=== PATIENT | male | born 1985 | race Caucasian/White ===

== ENCOUNTER 2017-11-21 03:39 | Inpatient (IN) | payer SELFPAY ==
[~2017-11-21] VITALS: Ht 182.9 cm; Wt 106.6 kg
[2017-11-21] MEDS ORDERED: ONDANSETRON HCL 4MG/2ML VIAL IV STA (04:21)
[2017-11-21] MEDS ORDERED: SODIUM CHLORIDE 0.9% 1,000 ML IV ONE (04:21)
[2017-11-21] MEDS ORDERED: MORPHINE SULFATE 4 MG/ML CPJ (NOT FOR IM USE) IV STA (04:21)
[2017-11-21] MEDS ORDERED: FAMOTIDINE 20MG/2ML VIAL IV STA (04:21)
[2017-11-21 04:46] LABS: HEMATOCRIT. 49.1 % (42.0-52.0); HEMOGLOBIN. 17.1 g/dL (14.0-18.0); MEAN CORPUSCULAR HEMOGLOBIN 28.9 pg (28.0-32.0); MEAN CORPUSCULAR VOLUME 83.1 fL (80.0-94.0); MEAN PLATELET VOLUME 8.9 fl (7.4-10.4); PLATELET 350 x1000/uL (130-400); RED CELL DISTRIBUTION WIDTH 13.7 % (11.6-14.6)
[2017-11-21 04:49] LABS: CHLORIDE 102 mEq/L (98-107)
[2017-11-21] MEDS ORDERED: CEFTRIAXONE 1 G PREMIX 50 ML IV ONE (05:15)
[2017-11-21 05:28] LABS: PLATELET ESTIMATE NORMAL
[2017-11-21] MEDS ORDERED: SODIUM CHLORIDE 0.9% 1,000 ML IV SCH (05:32)
[2017-11-21 06:32] LABS: CLARITY URINE CLEAR (CLEAR); COLOR URINE YELLOW (YELLOW); KETONES URINE NEGATIVE (NEGATIVE); LEUKOCYTE ESTERASE URINE NEGATIVE (NEGATIVE); NITRITE URINE NEGATIVE (NEGATIVE); OCCULT BLOOD URINE NEGATIVE (NEGATIVE); PROTEIN URINE TRACE (NEGATIVE); SPECIFIC GRAVITY URINE 1.021 (1.005-1.030)
[2017-11-21] MEDS ORDERED: AMLODIPINE 10MG TABLET PO ONE (06:45)
[2017-11-21 08:00] VITALS: BP 163/93
[2017-11-21] MEDS ORDERED: MORPHINE SULFATE 4 MG/ML CPJ (NOT FOR IM USE) IV PRN ×2 (08:15→09:15)
[2017-11-21] MEDS ORDERED: ENOXAPARIN 40MG/0.4ML SYR SUBCUT SCH (09:00)
[2017-11-21] MEDS ORDERED: ACETAMINOPHEN 650MG/20.3ML UDC GT PRN (09:00)
[2017-11-21] MEDS ORDERED: IPRATROPIUM/ALBUTEROL 0.5-3(2.5)MG/3ML NEB INH PRN (09:00)
[2017-11-21] MEDS ORDERED: ONDANSETRON HCL 4MG/2ML VIAL IV PRN (09:00)
[2017-11-21] MEDS ORDERED: GUAIFENESIN 200MG/10ML SUGAR FREE UDC PO PRN (09:00)
[2017-11-21] MEDS ORDERED: ACETAMINOPHEN 325MG TABLET PO PRN (09:00)
[2017-11-21] MEDS ORDERED: DEXTROSE 50% WATER 50ML SYRINGE IV PRN (09:00)
[2017-11-21] MEDS ORDERED: DOCUSATE SODIUM 100MG CAPSULE PO PRN (09:00)
[2017-11-21] MEDS ORDERED: DIPHENHYDRAMINE 50MG/ML VIAL IV PRN (09:00)
[2017-11-21] MEDS ORDERED: NA PHOS,M-B/NA PHOS,DI-BA ENEMA 118ML PR PRN (09:00)
[2017-11-21] MEDS ORDERED: ACETAMINOPHEN 650MG SUPP PR PRN (09:00)
[2017-11-21] MEDS ORDERED: MAGNESIUM/ALUMINUM HYDROXIDE/SIMETHICONE 30ML UDC PO PRN (09:00)
[2017-11-21] MEDS ORDERED: MORPHINE SULFATE 2 MG/ML CPJ (NOT FOR IM USE) IV PRN (09:15)
[2017-11-21] MEDS: ENOXAPARIN 30MG/0.3ML SYR SUBCUT SCH ×2 (09:20→21:28)
[2017-11-21] MEDS: BENAZEPRIL 10MG TABLET PO SCH ×2 (09:20→17:22)
[2017-11-21 09:37] VITALS: BP 164/89
[2017-11-21] MEDS: LEVOFLOXACIN 500MG PREMIX 100 ML IV SCH (10:16)
[2017-11-21] MEDS: SODIUM CHLORIDE 0.45% 1,000 ML IV SCH ×2 (10:16→21:29)
[2017-11-21 10:43] LABS: HEMATOCRIT. 49.6 % (42.0-52.0); HEMOGLOBIN. 17.7 g/dL (14.0-18.0); MEAN PLATELET VOLUME 9.3 fl (7.4-10.4); PLATELET 347 x1000/uL (130-400); RED CELL DISTRIBUTION WIDTH 13.7 % (11.6-14.6)
[2017-11-21 11:00] LABS: CHLORIDE 97 mEq/L (98-107)
[2017-11-21 12:00] VITALS: BP 178/106
[2017-11-21] MEDS: BLOOD SUGAR DIAGNOSTIC STRIP TEST SCH ×3 (12:20→21:28)
[2017-11-21 12:24] LABS: CLARITY URINE CLEAR (CLEAR); COLOR URINE YELLOW (YELLOW); KETONES URINE NEGATIVE (NEGATIVE); LEUKOCYTE ESTERASE URINE NEGATIVE (NEGATIVE); NITRITE URINE NEGATIVE (NEGATIVE); OCCULT BLOOD URINE NEGATIVE (NEGATIVE); PROTEIN URINE NEGATIVE (NEGATIVE); SPECIFIC GRAVITY URINE 1.009 (1.005-1.030)
[2017-11-21] MEDS: INSULIN LISPRO 100 UNITS/ML SUBCUT SCH ×3 (12:43→21:00)
[2017-11-21] MEDS: HYDROCODONE/ACETAMINOPHEN 10/325MG TABLET PO PRN ×3 (12:50→23:31)
[2017-11-21 13:17] LABS: *AMPHETAMINES SCREEN URINE PRESUMTIVE POSITIVE (NEGATIVE); *BARBITURATES SCREEN URINE NEGATIVE (NEGATIVE); *BENZODIAZEPINES SCREEN URINE NEGATIVE (NEGATIVE); *COCAINE SCREEN URINE NEGATIVE (NEGATIVE); CANNABINOID URINE SCREEN NEGATIVE (NEGATIVE); METHADONE URINE SCREEN NEGATIVE (NEGATIVE); OPIATES URINE SCREEN PRESUMTIVE POSITIVE (NEGATIVE); PHENCYCLIDINE URINE SCREEN NEGATIVE (NEGATIVE)
[2017-11-21 16:00] VITALS: BP 164/109
[2017-11-21] MEDS: SODIUM CHLORIDE 0.9% INJ 3ML FLUSH IVF SCH ×2 (17:37→21:28)
[2017-11-21] MEDS: METRONIDAZOLE 500 MG PREMIX 100 ML IV SCH ×2 (17:37→21:28)
[2017-11-21 20:00] VITALS: BP 159/103
[2017-11-21] MEDS: CLONIDINE 0.1MG TABLET PO PRN (21:30)
[2017-11-22] VITALS: BP 155/106
[2017-11-22] MEDS: HYDROCODONE/ACETAMINOPHEN 5/325MG TABLET PO PRN ×2 (03:36→18:12)
[2017-11-22] MEDS: CLONIDINE 0.1MG TABLET PO PRN (03:49)
[2017-11-22 04:00] VITALS: BP 145/97
[2017-11-22] MEDS: SODIUM CHLORIDE 0.9% INJ 3ML FLUSH IVF SCH ×2 (06:32→22:46)
[2017-11-22] MEDS: BLOOD SUGAR DIAGNOSTIC STRIP TEST SCH ×4 (06:33→21:15)
[2017-11-22] MEDS: METRONIDAZOLE 500 MG PREMIX 100 ML IV SCH ×3 (06:33→22:46)
[2017-11-22] MEDS: INSULIN LISPRO 100 UNITS/ML SUBCUT SCH ×4 (06:57→21:00)
[2017-11-22 07:22] LABS: BASOPHILS % 0.3 % (0.0-2.0); EOSINOPHILS % 0.1 % (0.0-5.0); HEMATOCRIT. 48.6 % (42.0-52.0); HEMOGLOBIN. 17.1 g/dL (14.0-18.0); LYMPHOCYTES % 8.1 % (20.0-50.0); MEAN CORPUSCULAR HEMOGLOBIN 29.4 pg (28.0-32.0); MEAN CORPUSCULAR VOLUME 83.5 fL (80.0-94.0); MEAN PLATELET VOLUME 9.5 fl (7.4-10.4); MONOCYTES % 10.5 % (2.0-8.0); PLATELET 369 x1000/uL (130-400); RED BLOOD CELL COUNT 5.82 mill/uL (4.7-6.1); RED CELL DISTRIBUTION WIDTH 13.8 % (11.6-14.6)
[2017-11-22 07:47] LABS: CHLORIDE 100 mEq/L (98-107)
[2017-11-22 08:04] LABS: HDL CHOLESTEROL 56 mg/dL (40-59); LDL CHOLESTEROL 53 mg/dL (5-100)
[2017-11-22 08:39] VITALS: BP 147/71
[2017-11-22] MEDS: ENOXAPARIN 30MG/0.3ML SYR SUBCUT SCH ×2 (09:12→21:14)
[2017-11-22] MEDS: LEVOFLOXACIN 500MG PREMIX 100 ML IV SCH (09:12)
[2017-11-22] MEDS: BENAZEPRIL 10MG TABLET PO SCH ×2 (09:16→18:11)
[2017-11-22] MEDS ORDERED: AMLO5TAB4 PO (11:47)
[2017-11-22] MEDS ORDERED: LOT10 PO (11:47)
[2017-11-22] MEDS ORDERED: METR250T PO (11:48)
[2017-11-22] MEDS ORDERED: LEVO500T2 PO (11:48)
[2017-11-22] MEDS: HYDROCODONE/ACETAMINOPHEN 10/325MG TABLET PO PRN (12:11)
[2017-11-22 12:45] VITALS: BP 122/103
[2017-11-22 12:51] LABS: PLATELET ESTIMATE NORMAL
[2017-11-22] MEDS: AMLODIPINE 5MG TABLET PO SCH (13:30)
[2017-11-22 16:50] VITALS: BP 146/92
[2017-11-22] MEDS: SODIUM CHLORIDE 0.45% 1,000 ML IV SCH (18:15)
[2017-11-22 20:00] VITALS: BP 138/88
[2017-11-22] MEDS ORDERED: KETOROLAC 30MG/ML VIAL IV NR (21:00)
[2017-11-22] MEDS ORDERED: DIATR MEGLU/DIATRIZOATE SOLN 30ML PO SCH (21:00)
[2017-11-22] MEDS ORDERED: IOHEXOL-350 100 ML BOTTLE ONE (23:15)
[2017-11-23] VITALS: BP 125/78
[2017-11-23 04:00] VITALS: BP 123/76
[2017-11-23] MEDS: METRONIDAZOLE 500 MG PREMIX 100 ML IV SCH ×2 (05:08→14:00)
[2017-11-23] MEDS: SODIUM CHLORIDE 0.9% INJ 3ML FLUSH IVF SCH ×2 (05:08→14:00)
[2017-11-23] MEDS: HYDROCODONE/ACETAMINOPHEN 10/325MG TABLET PO PRN (05:10)
[2017-11-23] MEDS: BLOOD SUGAR DIAGNOSTIC STRIP TEST SCH ×2 (06:35→12:20)
[2017-11-23 07:20] LABS: INR 1.1; PROTHROMBIN TIME 11.4 sec (9.4-11.6)
[2017-11-23 07:45] LABS: CHLORIDE 97 mEq/L (98-107)
[2017-11-23] MEDS: INSULIN LISPRO 100 UNITS/ML SUBCUT SCH ×2 (07:50→12:50)
[2017-11-23 07:52] LABS: AMYLASE 45 IU/L (25-115)
[2017-11-23 08:00] VITALS: BP 132/82
[2017-11-23] MEDS ORDERED: KETOROLAC 30MG/ML VIAL IV SCH (08:00)
[2017-11-23] MEDS ORDERED: PANTOPRAZOLE 40MG DR TABLET PO SCH (08:00)
[2017-11-23 08:02] LABS: BASOPHILS % 0.3 % (0.0-2.0); EOSINOPHILS % 0.6 % (0.0-5.0); HEMATOCRIT. 48.1 % (42.0-52.0); HEMOGLOBIN. 16.3 g/dL (14.0-18.0); LYMPHOCYTES % 8.2 % (20.0-50.0); MEAN CORPUSCULAR HEMOGLOBIN 28.7 pg (28.0-32.0); MEAN CORPUSCULAR VOLUME 84.6 fL (80.0-94.0); MEAN PLATELET VOLUME 9.7 fl (7.4-10.4); NEUTROPHILS % 78.9 % (40.0-76.0); PLATELET 332 x1000/uL (130-400); RED BLOOD CELL COUNT 5.69 mill/uL (4.7-6.1)
[2017-11-23] MEDS: AMLODIPINE 5MG TABLET PO SCH (10:09)
[2017-11-23] MEDS: BENAZEPRIL 10MG TABLET PO SCH (10:09)
[2017-11-23] MEDS: ENOXAPARIN 30MG/0.3ML SYR SUBCUT SCH (10:13)
[2017-11-23] MEDS: LEVOFLOXACIN 500MG PREMIX 100 ML IV SCH (10:14)
[2017-11-23 12:00] VITALS: BP 125/81
[2017-11-23] MEDS: SODIUM CHLORIDE 0.45% 1,000 ML IV SCH ×2 (14:01→14:20)
[2017-11-23 14:46] VITALS: BP 125/81
[2017-11-23 16:00] VITALS: BP 121/79
== END 2017-11-23 18:26 | disposition home or self-care (01) ==
LOC: ER 03:39 → EDBEDREQ 05:26 → EDBEDREQTM 05:47 → EDBEDREQSVC 06:46 → ENRESERV 07:10 → 6EST 07:11
PROVIDERS: ADMIT Family Medicine; ATTEND Family Medicine
DX: K80.00 Calculus of gallbladder with acute cholecystitis without obstruction (principal); K76.0 Fatty (change of) liver, not elsewhere classified; I10 Essential (primary) hypertension; E86.0 Dehydration; F15.90 Other stimulant use, unspecified, uncomplicated
CPT/HCPCS: 36415; 71275; 74160; 76705; 80053; 80061; 80076; 80305; 81003; 82150; 82962; 83036; 83690; 85025; 85610; 96361; 96365; 96375; 99285; J0696; J1650; J1885; J1956; J2270; J2405; J3490; J7030; Q9967